=== PATIENT | male | born 1980 | race Caucasian/White ===

== ENCOUNTER 2021-01-22 12:10 | Emergency (ER) | payer OTHER ==
[2021-01-22 12:34] VITALS: BMI 35.9
[2021-01-22] MEDS ORDERED: BAMLANIVIMAB 700 MG, ETESEVIMAB 1,400 MG in SODIUM CHLORIDE 250 ML IVPB ONE (13:03)
[2021-01-22 14:21] LABS: HEMATOCRIT 45.6 % (35.4-49); HEMOGLOBIN 15.9 GM/dL (11.7-16.9); MCH 29.7 pg (25.7-33.7); MCHC 34.8 g/dl (32.0-35.9); MEAN CELL VOLUME 85.5 fl (80-96); PLATELET COUNT 214 K/MM3 (134-434); RBC 5.34 M/mm3 (4.00-5.60); RDW 13.5 % (11.9-15.9); WHITE BLOOD COUNT 4.1 K/mm3 (4.0-10.0)
[2021-01-22 14:44] LABS: POTASSIUM 3.3 mmol/L (3.5-5.1)
[2021-01-22 14:46] LABS: BLOOD UREA NITROGEN 17.3 mg/dL (7-18); CALCIUM 9.1 mg/dL (8.5-10.1)
[2021-01-22 14:50] LABS: CREATININE 0.8 mg/dL (0.55-1.3)
[2021-01-22 16:20] VITALS: BP 120/83; PULSE 84; TEMP 98.3
== END 2021-01-22 17:09 | disposition home or self-care (01) ==
LOC: JER 12:10
PROC: 3E033GC Introduction of Other Therapeutic Substance into Peripheral Vein, Percutaneous Approach (ICD-10-PCS; principal; 2021-01-22)
DX: U07.1 COVID-19 (principal)
CPT/HCPCS: 36415; 80048; 85027; 99284-25; M0239; Q0239; Q0245